=== PATIENT | male | born 1935 | race African-American/Black ===

== ENCOUNTER 2016-11-23 16:56 | Emergency (ER) | payer OTHER, MEDICAID ==
[~2016-11-23] VITALS: Ht 180.3 cm; Wt 81.0 kg
[~2016-11-23 16:56] MED LIST: ASPI-518 PO; FAMO20TA96 PO; FLUT1DIS3 IH; QVAR80 IH; VIAG50 PO
[2016-11-23] MEDS ORDERED: TRAMADOL 50MG TABLET PO ONE (17:45)
[2016-11-23] MEDS ORDERED: KETOROLAC 15MG/ML VIAL IV ONE (17:45)
[2016-11-23 18:01] LABS: EOSINOPHILS % 1.9 % (0.0-5.0); HEMATOCRIT. 42.5 % (42.0-52.0); HEMOGLOBIN. 14.2 g/dL (14.0-18.0); LYMPHOCYTES % 33.1 % (20.0-50.0); MEAN CORPUSCULAR HGB CONC 33.5 g/dL (31.0-37.0); MEAN CORPUSCULAR VOLUME 89.6 fL (80.0-94.0); MEAN PLATELET VOLUME 8.8 fl (7.4-10.4); MONOCYTES % 11.9 % (2.0-8.0); NEUTROPHILS % 52.1 % (40.0-76.0); PLATELET 197 x1000/uL (130-400); RED BLOOD CELL COUNT 4.74 mill/uL (4.7-6.1); RED CELL DISTRIBUTION WIDTH 14.3 % (11.6-14.6); WHITE BLOOD COUNT 6.4 x1000/uL (4.5-11.0)
[2016-11-23 18:08] LABS: ANION GAP 13; CALCIUM 7.8 mg/dL (8.5-10.1); CARBON DIOXIDE 27 mEq/L (21-32); CHLORIDE 105 mEq/L (98-107); INDEX HEMOLYSI 1 (1-3); INDEX ICTERIC 1 (1-4); INDEX LIPEMIC 1 (1-3); UREA NITROGEN BLOOD 11 mg/dL (7-21)
[2016-11-23 18:12] LABS: TROPONIN I < 0.02 ng/mL (0.00-0.04); eGFR > 60 mL/min (>60)
[2016-11-24 02:10] VITALS: BP 145/78
== END 2016-11-24 04:08 | disposition home or self-care (01) ==
LOC: ER 16:56
DX: M19.012 Primary osteoarthritis, left shoulder (principal); R53.1 Weakness; Z79.82 Long term (current) use of aspirin; Z79.899 Other long term (current) drug therapy
CPT/HCPCS: 36415; 73030; 73060; 80048; 84484; 85025; 96374; 99285; J1885

== ENCOUNTER 2016-12-13 11:21 | Emergency (ER) | payer OTHER, MEDICAID ==
[~2016-12-13] VITALS: Ht 182.9 cm; Wt 100.0 kg
[2016-12-13 12:39] VITALS: BP 164/80
== END 2016-12-13 14:20 | disposition home or self-care (01) ==
LOC: ER 11:56
DX: M13.812 Other specified arthritis, left shoulder (principal); M13.811 Other specified arthritis, right shoulder; R00.1 Bradycardia, unspecified; R56.9 Unspecified convulsions
CPT/HCPCS: 73030; 93005; 99284

== ENCOUNTER 2018-07-18 12:34 | Emergency (ER) | payer OTHER, MEDICAID ==
[~2018-07-18] VITALS: Ht 177.8 cm; Wt 87.0 kg
[~2018-07-18 12:34] MED LIST changes: +DICL100G31 TP; +FAMO-135 PO; -FAMO20TA96 PO; +GABA-531 PO; +LAMO25TA4 PO; +MELO-106 PO; +PHEN100C12 PO; +TAMS-11 PO
[2018-07-18 14:43] LABS: BASOPHILS % 0.6 % (0.0-2.0); EOSINOPHILS % 1.2 % (0.0-5.0); HEMATOCRIT. 39.1 % (42.0-52.0); HEMOGLOBIN. 13.3 g/dL (14.0-18.0); LYMPHOCYTES % 36.6 % (20.0-50.0); MEAN CORPUSCULAR HEMOGLOBIN 31.3 pg (28.0-32.0); MEAN CORPUSCULAR VOLUME 92.2 fL (80.0-94.0); MEAN PLATELET VOLUME 9.5 fl (7.4-10.4); NEUTROPHILS % 52.6 % (40.0-76.0); PLATELET 189 x1000/uL (130-400); RED BLOOD CELL COUNT 4.24 mill/uL (4.7-6.1); RED CELL DISTRIBUTION WIDTH 13.9 % (11.6-14.6)
[2018-07-18 14:49] LABS: CHLORIDE 105 mEq/L (98-107)
[2018-07-18 14:55] LABS: ETHANOL BLOOD < 10 mg/dL
[2018-07-18 15:16] LABS: CLARITY URINE CLEAR (CLEAR); COLOR URINE YELLOW (YELLOW); KETONES URINE NEGATIVE (NEGATIVE); LEUKOCYTE ESTERASE URINE NEGATIVE (NEGATIVE); NITRITE URINE NEGATIVE (NEGATIVE); OCCULT BLOOD URINE NEGATIVE (NEGATIVE); PROTEIN URINE NEGATIVE (NEGATIVE); SPECIFIC GRAVITY URINE 1.011 (1.005-1.030); UROBILINOGEN URINE 0.2 E.U./dL (0.2-1.0)
[2018-07-18 15:31] LABS: *AMPHETAMINES SCREEN URINE NEGATIVE (NEGATIVE); *BARBITURATES SCREEN URINE NEGATIVE (NEGATIVE); *BENZODIAZEPINES SCREEN URINE NEGATIVE (NEGATIVE); *COCAINE SCREEN URINE NEGATIVE (NEGATIVE)
[2018-07-18 15:32] LABS: CANNABINOID URINE SCREEN NEGATIVE (NEGATIVE); METHADONE URINE SCREEN NEGATIVE (NEGATIVE); OPIATES URINE SCREEN NEGATIVE (NEGATIVE); PHENCYCLIDINE URINE SCREEN NEGATIVE (NEGATIVE)
[2018-07-18 20:20] VITALS: BP 138/53
== END 2018-07-19 00:05 | disposition short-term general hospital (02) ==
LOC: ER 13:12 → EDBEDREQ 16:38 → EDBEDREQTM 16:38 → CANBEDREQ 18:19 → ER 07-19 00:05
DX: R53.1 Weakness (principal); I10 Essential (primary) hypertension; G40.909 Epilepsy, unspecified, not intractable, without status epilepticus; M48.061 Spinal stenosis, lumbar region without neurogenic claudication; R26.2 Difficulty in walking, not elsewhere classified; Z86.011 Personal history of benign neoplasm of the brain; Z98.890 Other specified postprocedural states; Z95.0 Presence of cardiac pacemaker; Z79.82 Long term (current) use of aspirin
CPT/HCPCS: 36415; 70450; 71045; 72131; 80053; 80305; 81003; 83880; 84484; 85025; 93005; 99284; G0482

== ENCOUNTER 2018-08-17 11:29 | Inpatient (IN) | payer MEDICARE, MEDICAID ==
[~2018-08-17] VITALS: Ht 185.4 cm; Wt 91.2 kg
[2018-08-17 13:20] LABS: BASOPHILS % 0.7 % (0.0-2.0); EOSINOPHILS % 3.5 % (0.0-5.0); HEMATOCRIT. 41.2 % (42.0-52.0); HEMOGLOBIN. 13.9 g/dL (14.0-18.0); LYMPHOCYTES % 34.6 % (20.0-50.0); MEAN CORPUSCULAR HEMOGLOBIN 30.9 pg (28.0-32.0); MEAN CORPUSCULAR VOLUME 91.4 fL (80.0-94.0); MEAN PLATELET VOLUME 9.1 fl (7.4-10.4); MONOCYTES % 13.8 % (2.0-8.0); NEUTROPHILS % 47.4 % (40.0-76.0); PLATELET 201 x1000/uL (130-400); RED BLOOD CELL COUNT 4.51 mill/uL (4.7-6.1); RED CELL DISTRIBUTION WIDTH 13.8 % (11.6-14.6)
[2018-08-17 13:27] LABS: CHLORIDE 107 mEq/L (98-107)
[2018-08-17 15:09] VITALS: BP 136/81
[2018-08-17 16:00] VITALS: BP 141/69
[2018-08-17] MEDS ORDERED: ONDANSETRON HCL 4MG/2ML INJ IV PRN (16:45)
[2018-08-17] MEDS ORDERED: PHENYTOIN SODIUM EXTENDED 100MG CAPSULE PO SCH (16:45)
[2018-08-17] MEDS ORDERED: ACETAMINOPHEN 325MG TABLET PO PRN (16:45)
[2018-08-17] MEDS ORDERED: IPRATROPIUM/ALBUTEROL 0.5-3(2.5)MG/3ML NEB INH PRN (16:45)
[2018-08-17] MEDS ORDERED: CLONIDINE 0.1MG TABLET PO PRN (16:45)
[2018-08-17] MEDS: PHENYTOIN SODIUM EXTENDED 100MG CAPSULE PO SCH (17:25)
[2018-08-17] MEDS: ASPIRIN 81MG TABLET PO SCH (17:25)
[2018-08-17] MEDS: LAMOTRIGINE 25MG TABLET PO SCH (17:25)
[2018-08-17] MEDS: TAMSULOSIN HCL 0.4MG SR CAPSULE PO SCH (17:26)
[2018-08-17] MEDS: ENOXAPARIN 40MG/0.4ML SYR SUBCUT SCH (17:27)
[2018-08-17 18:33] LABS: *AMPHETAMINES SCREEN URINE NEGATIVE (NEGATIVE); *BARBITURATES SCREEN URINE NEGATIVE (NEGATIVE); *BENZODIAZEPINES SCREEN URINE NEGATIVE (NEGATIVE); *COCAINE SCREEN URINE NEGATIVE (NEGATIVE); METHADONE URINE SCREEN NEGATIVE (NEGATIVE)
[2018-08-17 18:34] LABS: CANNABINOID URINE SCREEN NEGATIVE (NEGATIVE); OPIATES URINE SCREEN NEGATIVE (NEGATIVE); PHENCYCLIDINE URINE SCREEN NEGATIVE (NEGATIVE)
[2018-08-17 20:00] VITALS: BP 116/62
[2018-08-18] VITALS (7 sets, daily range): BP systolic 103–146; BP diastolic 54–93
[2018-08-18 00:39] LABS: CREATINE KINASE MB FRACTION 3.3 ng/mL (0.5-3.6)
[2018-08-18 06:43] LABS: BASOPHILS % 1.1 % (0.0-2.0); EOSINOPHILS % 4.1 % (0.0-5.0); HEMATOCRIT. 44.6 % (42.0-52.0); HEMOGLOBIN. 15.1 g/dL (14.0-18.0); LYMPHOCYTES % 50.7 % (20.0-50.0); MEAN CORPUSCULAR HEMOGLOBIN 30.9 pg (28.0-32.0); MEAN CORPUSCULAR VOLUME 91.5 fL (80.0-94.0); MEAN PLATELET VOLUME 9.2 fl (7.4-10.4); MONOCYTES % 11.1 % (2.0-8.0); PLATELET 197 x1000/uL (130-400); RED BLOOD CELL COUNT 4.87 mill/uL (4.7-6.1)
[2018-08-18 07:00] LABS: CHLORIDE 105 mEq/L (98-107)
[2018-08-18 07:14] LABS: CREATINE KINASE 107 IU/L (39-308)
[2018-08-18 07:15] LABS: CREATINE KINASE MB FRACTION 3.2 ng/mL (0.5-3.6)
[2018-08-18] MEDS: ASPIRIN 81MG TABLET PO SCH (08:27)
[2018-08-18] MEDS: LAMOTRIGINE 25MG TABLET PO SCH (08:28)
[2018-08-18] MEDS: PHENYTOIN SODIUM EXTENDED 100MG CAPSULE PO SCH ×2 (08:28→18:14)
[2018-08-18] MEDS: GABAPENTIN 300MG CAPSULE PO SCH (08:28)
[2018-08-18] MEDS: TAMSULOSIN HCL 0.4MG SR CAPSULE PO SCH ×2 (08:33→18:15)
[2018-08-18] MEDS: ENOXAPARIN 40MG/0.4ML SYR SUBCUT SCH (18:15)
[2018-08-19] VITALS: BP 114/54
[2018-08-19 04:00] VITALS: BP 125/71
[2018-08-19 07:55] LABS: BASOPHILS % 0.6 % (0.0-2.0); HEMATOCRIT. 44.4 % (42.0-52.0); HEMOGLOBIN. 15.2 g/dL (14.0-18.0); LYMPHOCYTES % 46.3 % (20.0-50.0); MEAN CORPUSCULAR HEMOGLOBIN 31.4 pg (28.0-32.0); MEAN CORPUSCULAR VOLUME 91.7 fL (80.0-94.0); MEAN PLATELET VOLUME 9.2 fl (7.4-10.4); MONOCYTES % 10.2 % (2.0-8.0); NEUTROPHILS % 38.9 % (40.0-76.0); PLATELET 210 x1000/uL (130-400); RED BLOOD CELL COUNT 4.84 mill/uL (4.7-6.1); RED CELL DISTRIBUTION WIDTH 13.7 % (11.6-14.6)
[2018-08-19 07:56] LABS: CHLORIDE 105 mEq/L (98-107)
[2018-08-19] MEDS: PHENYTOIN SODIUM EXTENDED 100MG CAPSULE PO SCH (09:48)
[2018-08-19] MEDS: LAMOTRIGINE 25MG TABLET PO SCH (09:48)
[2018-08-19] MEDS: ASPIRIN 81MG TABLET PO SCH (09:48)
[2018-08-19] MEDS: GABAPENTIN 300MG CAPSULE PO SCH (09:48)
[2018-08-19] MEDS: TAMSULOSIN HCL 0.4MG SR CAPSULE PO SCH (09:48)
[2018-08-19 12:08] VITALS: BP 124/69
[2018-08-19 14:11] VITALS: BP 122/68
== END 2018-08-19 16:00 | disposition home or self-care (01) | DRG 206 ==
LOC: ER 11:29 → 5WST 12:44 → ENRESERV 12:52
PROVIDERS: ADMIT Internal Medicine; ATTEND Internal Medicine
PROC: 4B02XSZ Measurement of Cardiac Pacemaker, External Approach (ICD-10-PCS; principal; 2018-08-18)
DX: M94.0 Chondrocostal junction syndrome [Tietze] (principal); I50.20 Unspecified systolic (congestive) heart failure; R07.89 Other chest pain; J44.9 Chronic obstructive pulmonary disease, unspecified; G40.909 Epilepsy, unspecified, not intractable, without status epilepticus; N40.0 Benign prostatic hyperplasia without lower urinary tract symptoms; Z85.841 Personal history of malignant neoplasm of brain; Z87.891 Personal history of nicotine dependence; Z95.0 Presence of cardiac pacemaker; Z85.9 Personal history of malignant neoplasm, unspecified; Z86.73 Personal history of transient ischemic attack (TIA), and cerebral infarction without residual deficits; I11.0 Hypertensive heart disease with heart failure; I49.5 Sick sinus syndrome
CPT/HCPCS: 36415; 70360; 71046; 80048; 80305; 82550; 82553; 82962; 83880; 84484; 93005; 93306; 99285; J1650

== ENCOUNTER 2018-08-20 10:52 | Emergency (ER) | payer MEDICARE, MEDICAID ==
[~2018-08-20] VITALS: Ht 185.4 cm; Wt 90.0 kg
[2018-08-20] MEDS ORDERED: ASPIRIN 81MG TABLET PO ONE (11:30)
[2018-08-20 11:58] LABS: BASOPHILS % 0.7 % (0.0-2.0); EOSINOPHILS % 4.5 % (0.0-5.0); HEMATOCRIT. 43.8 % (42.0-52.0); LYMPHOCYTES % 31.5 % (20.0-50.0); MEAN CORPUSCULAR HEMOGLOBIN 31.2 pg (28.0-32.0); MEAN CORPUSCULAR VOLUME 91.1 fL (80.0-94.0); MEAN PLATELET VOLUME 9.4 fl (7.4-10.4); MONOCYTES % 9.5 % (2.0-8.0); NEUTROPHILS % 53.8 % (40.0-76.0); PLATELET 213 x1000/uL (130-400); RED CELL DISTRIBUTION WIDTH 14.1 % (11.6-14.6)
[2018-08-20 12:01] LABS: CHLORIDE 107 mEq/L (98-107)
[2018-08-20 12:11] LABS: D-DIMER 0.46 mg/L FEU (<0.50); INR 1.1; PROTHROMBIN TIME 10.8 sec (9.1-11.1)
[2018-08-20 16:32] VITALS: BP 128/70
== END 2018-08-20 16:40 | disposition short-term general hospital (02) ==
LOC: ER 10:52 → CANBEDREQ 20:45
DX: R00.2 Palpitations (principal); R07.89 Other chest pain; I10 Essential (primary) hypertension; I45.10 Unspecified right bundle-branch block; Z98.890 Other specified postprocedural states; Z86.011 Personal history of benign neoplasm of the brain; Z85.9 Personal history of malignant neoplasm, unspecified; Z95.0 Presence of cardiac pacemaker; Z79.82 Long term (current) use of aspirin
CPT/HCPCS: 36415; 71045; 80185; 83880; 84484; 85379; 93005; 99285

== ENCOUNTER 2019-05-17 17:04 | Emergency (ER) | payer MEDICAID, MEDICARE ==
[~2019-05-17] VITALS: Ht 185.4 cm; Wt 86.0 kg
[~2019-05-17 17:04] MED LIST changes: -LAMO25TA4 PO; +LAMO25TA9 PO
[2019-05-17 18:49] LABS: CLARITY URINE CLEAR (CLEAR); COLOR URINE YELLOW (YELLOW); KETONES URINE NEGATIVE (NEGATIVE); LEUKOCYTE ESTERASE URINE NEGATIVE (NEGATIVE); NITRITE URINE NEGATIVE (NEGATIVE); OCCULT BLOOD URINE NEGATIVE (NEGATIVE); PROTEIN URINE NEGATIVE (NEGATIVE); SPECIFIC GRAVITY URINE 1.026 (1.005-1.030)
[2019-05-17] MEDS ORDERED: SODIUM CHLORIDE 0.9% 500 ML IV ONE (19:00)
[2019-05-17 19:16] LABS: *BARBITURATES SCREEN URINE NEGATIVE (NEGATIVE)
[2019-05-17 19:17] LABS: *AMPHETAMINES SCREEN URINE NEGATIVE (NEGATIVE); *BENZODIAZEPINES SCREEN URINE NEGATIVE (NEGATIVE); *COCAINE SCREEN URINE NEGATIVE (NEGATIVE); METHADONE URINE SCREEN NEGATIVE (NEGATIVE)
[2019-05-17 19:18] LABS: CANNABINOID URINE SCREEN NEGATIVE (NEGATIVE); OPIATES URINE SCREEN NEGATIVE (NEGATIVE); PHENCYCLIDINE URINE SCREEN NEGATIVE (NEGATIVE)
[2019-05-17 20:27] LABS: BASOPHILS % 0.6 % (0.0-2.0); EOSINOPHILS % 1.2 % (0.0-5.0); HEMATOCRIT. 38.3 % (42.0-52.0); HEMOGLOBIN. 13.1 g/dL (14.0-18.0); LYMPHOCYTES % 33.6 % (20.0-50.0); MEAN CORPUSCULAR HEMOGLOBIN 30.5 pg (28.0-32.0); MEAN CORPUSCULAR VOLUME 89.2 fL (80.0-94.0); MEAN PLATELET VOLUME 9.2 fl (7.4-10.4); MONOCYTES % 10.4 % (2.0-8.0); NEUTROPHILS % 54.2 % (40.0-76.0); PLATELET 202 x1000/uL (130-400); RED BLOOD CELL COUNT 4.29 mill/uL (4.7-6.1); RED CELL DISTRIBUTION WIDTH 14.5 % (11.6-14.6)
[2019-05-17 20:32] LABS: CHLORIDE 108 mEq/L (98-107)
[2019-05-17 20:35] VITALS: BP 131/76
[2019-05-17 20:36] LABS: ETHANOL BLOOD < 10 mg/dL
== END 2019-05-17 22:53 | disposition home or self-care (01) ==
LOC: ER 17:04
DX: R55 Syncope and collapse (principal); I11.9 Hypertensive heart disease without heart failure; Z95.0 Presence of cardiac pacemaker; Z98.890 Other specified postprocedural states; Z79.899 Other long term (current) drug therapy
CPT/HCPCS: 36415; 70450; 71045; 80053; 80305; 80320; 81003; 83880; 84484; 85025; 93005; 96360; 96361; 99284; J7040; G0480

== ENCOUNTER 2019-05-21 18:16 | Inpatient (IN) | payer MEDICARE ==
[~2019-05-21] VITALS: Ht 185.4 cm; Wt 89.4 kg
[2019-05-21 19:28] LABS: BASOPHILS % 0.1 % (0.0-2.0); HEMATOCRIT. 45.5 % (42.0-52.0); HEMOGLOBIN. 15.5 g/dL (14.0-18.0); LYMPHOCYTES % 7.1 % (20.0-50.0); MEAN CORPUSCULAR HEMOGLOBIN 30.3 pg (28.0-32.0); MEAN CORPUSCULAR VOLUME 88.7 fL (80.0-94.0); MEAN PLATELET VOLUME 9.2 fl (7.4-10.4); NEUTROPHILS % 87.8 % (40.0-76.0); PLATELET 239 x1000/uL (130-400); RED BLOOD CELL COUNT 5.13 mill/uL (4.7-6.1); RED CELL DISTRIBUTION WIDTH 14.4 % (11.6-14.6)
[2019-05-21 19:30] LABS: CHLORIDE 100 mEq/L (98-107)
[2019-05-21] MEDS ORDERED: PHENYTOIN SODIUM 1,000 MG in SODIUM CHLORIDE 0.9% 100 ML IV ONE (20:00)
[2019-05-21] MEDS ORDERED: FUROSEMIDE 20MG/2ML VIAL IVP ONE (20:00)
[2019-05-21 20:34] LABS: CLARITY URINE CLEAR (CLEAR); COLOR URINE YELLOW (YELLOW); KETONES URINE 1+ (NEGATIVE); LEUKOCYTE ESTERASE URINE NEGATIVE (NEGATIVE); NITRITE URINE NEGATIVE (NEGATIVE); OCCULT BLOOD URINE 2+ (NEGATIVE); PROTEIN URINE 1+ (NEGATIVE); SPECIFIC GRAVITY URINE 1.016 (1.005-1.030)
[2019-05-21 23:56] VITALS: BP 122/62
[2019-05-22] VITALS: BP 122/62
[2019-05-22] MEDS ORDERED: LORAZEPAM 2MG/ML CPJ IV PRN (01:45)
[2019-05-22] MEDS ORDERED: ONDANSETRON HCL 4MG/2ML INJ IV PRN (01:45)
[2019-05-22] MEDS ORDERED: ACETAMINOPHEN 325MG TABLET PO PRN (01:45)
[2019-05-22 04:25] VITALS: BP 103/53
[2019-05-22] MEDS ORDERED: SODIUM CHLORIDE 0.9% 1,000 ML IV SCH (06:00)
[2019-05-22 07:00] LABS: BASOPHILS % 0.3 % (0.0-2.0); EOSINOPHILS % 0.2 % (0.0-5.0); HEMATOCRIT. 43.6 % (42.0-52.0); HEMOGLOBIN. 15.1 g/dL (14.0-18.0); MEAN CORPUSCULAR HEMOGLOBIN 30.8 pg (28.0-32.0); MEAN CORPUSCULAR VOLUME 88.9 fL (80.0-94.0); MEAN PLATELET VOLUME 9.6 fl (7.4-10.4); MONOCYTES % 9.1 % (2.0-8.0); NEUTROPHILS % 78.4 % (40.0-76.0); PLATELET 211 x1000/uL (130-400); RED CELL DISTRIBUTION WIDTH 14.3 % (11.6-14.6)
[2019-05-22 07:06] LABS: CHLORIDE 104 mEq/L (98-107)
[2019-05-22 08:00] VITALS: BP 107/54
[2019-05-22] MEDS: LEVETIRACETAM 500 MG in SODIUM CHLORIDE 0.9% 100 ML IV SCH ×2 (08:49→22:10)
[2019-05-22] MEDS: ENOXAPARIN 40MG/0.4ML SYR SUBCUT SCH (08:49)
[2019-05-22] MEDS ORDERED: LEVETIRACETAM 500 MG in SODIUM CHLORIDE 0.9% 100 ML IV SCH (09:00)
[2019-05-22 12:00] VITALS: BP 117/66
[2019-05-22 14:40] LABS: *AMPHETAMINES SCREEN URINE NEGATIVE (NEGATIVE); *BARBITURATES SCREEN URINE NEGATIVE (NEGATIVE); *BENZODIAZEPINES SCREEN URINE NEGATIVE (NEGATIVE); *COCAINE SCREEN URINE NEGATIVE (NEGATIVE); METHADONE URINE SCREEN NEGATIVE (NEGATIVE)
[2019-05-22 14:41] LABS: CANNABINOID URINE SCREEN NEGATIVE (NEGATIVE); OPIATES URINE SCREEN NEGATIVE (NEGATIVE); PHENCYCLIDINE URINE SCREEN NEGATIVE (NEGATIVE)
[2019-05-22 16:00] VITALS: BP 122/71
[2019-05-22] MEDS ORDERED: FUROSEMIDE 40MG/4ML VIAL IVP NR (16:00)
[2019-05-22] MEDS: ASPIRIN 81MG TABLET PO SCH (17:55)
[2019-05-22 20:00] VITALS: BP 114/68
[2019-05-22] MEDS: PHENYTOIN SODIUM EXTENDED 100MG CAPSULE PO SCH (22:10)
[2019-05-23] VITALS: BP 105/58
[2019-05-23 04:00] VITALS: BP 139/79
[2019-05-23 07:53] LABS: BASOPHILS % 0.4 % (0.0-2.0); EOSINOPHILS % 1.8 % (0.0-5.0); HEMATOCRIT. 44.3 % (42.0-52.0); LYMPHOCYTES % 24.5 % (20.0-50.0); MEAN CORPUSCULAR HEMOGLOBIN 30.5 pg (28.0-32.0); MEAN CORPUSCULAR VOLUME 90.3 fL (80.0-94.0); MEAN PLATELET VOLUME 9.9 fl (7.4-10.4); MONOCYTES % 10.3 % (2.0-8.0); PLATELET 194 x1000/uL (130-400); RED BLOOD CELL COUNT 4.91 mill/uL (4.7-6.1); RED CELL DISTRIBUTION WIDTH 14.6 % (11.6-14.6)
[2019-05-23 08:00] VITALS: BP 113/66
[2019-05-23 08:04] LABS: CHLORIDE 107 mEq/L (98-107)
[2019-05-23] MEDS: ASPIRIN 81MG TABLET PO SCH (08:49)
[2019-05-23] MEDS: LEVETIRACETAM 500 MG in SODIUM CHLORIDE 0.9% 100 ML IV SCH ×2 (08:49→20:50)
[2019-05-23] MEDS: ENOXAPARIN 40MG/0.4ML SYR SUBCUT SCH (08:50)
[2019-05-23 12:10] VITALS: BP 132/63
[2019-05-23 16:00] VITALS: BP 115/69
[2019-05-23 20:00] VITALS: BP 132/67
[2019-05-23] MEDS: PHENYTOIN SODIUM EXTENDED 100MG CAPSULE PO SCH (20:50)
[2019-05-24] VITALS: BP 102/64
[2019-05-24 04:00] VITALS: BP 109/64
[2019-05-24 08:00] VITALS: BP 120/64
[2019-05-24] MEDS: LEVETIRACETAM 500 MG in SODIUM CHLORIDE 0.9% 100 ML IV SCH ×2 (08:34→20:25)
[2019-05-24] MEDS: ASPIRIN 81MG TABLET PO SCH (08:34)
[2019-05-24] MEDS: ENOXAPARIN 40MG/0.4ML SYR SUBCUT SCH (08:35)
[2019-05-24 12:00] VITALS: BP 115/54
[2019-05-24 16:00] VITALS: BP 120/58
[2019-05-24 20:00] VITALS: BP 111/59
[2019-05-24] MEDS: PHENYTOIN SODIUM EXTENDED 100MG CAPSULE PO SCH (20:25)
[2019-05-25] VITALS: BP 125/64
[2019-05-25 04:00] VITALS: BP 120/63
[2019-05-25 08:00] VITALS: BP 99/56
[2019-05-25] MEDS: LEVETIRACETAM 500 MG in SODIUM CHLORIDE 0.9% 100 ML IV SCH ×2 (09:11→21:46)
[2019-05-25] MEDS: ASPIRIN 81MG TABLET PO SCH (09:11)
[2019-05-25] MEDS: ENOXAPARIN 40MG/0.4ML SYR SUBCUT SCH (11:32)
[2019-05-25 12:00] VITALS: BP 113/68
[2019-05-25 16:00] VITALS: BP 115/66
[2019-05-25 20:00] VITALS: BP 125/64
[2019-05-25] MEDS: PHENYTOIN SODIUM EXTENDED 100MG CAPSULE PO SCH (21:46)
[2019-05-25] MEDS: ATORVASTATIN CALCIUM 10MG TABLET PO SCH (21:47)
[2019-05-25] MEDS: CARVEDILOL 3.125 MG TABLET PO SCH (21:47)
[2019-05-26] VITALS: BP 129/69
[2019-05-26 04:00] VITALS: BP 142/78
[2019-05-26 08:00] VITALS: BP 142/73
[2019-05-26] MEDS: ASPIRIN 81MG TABLET PO SCH (09:46)
[2019-05-26] MEDS: CARVEDILOL 3.125 MG TABLET PO SCH ×2 (09:46→21:05)
[2019-05-26 12:00] VITALS: BP 109/63
[2019-05-26] MEDS: LEVETIRACETAM 500 MG in SODIUM CHLORIDE 0.9% 100 ML IV SCH ×2 (12:14→21:33)
[2019-05-26] MEDS: ENOXAPARIN 40MG/0.4ML SYR SUBCUT SCH (12:14)
[2019-05-26 16:00] VITALS: BP 100/67
[2019-05-26 20:00] VITALS: BP 114/60
[2019-05-26] MEDS: ATORVASTATIN CALCIUM 10MG TABLET PO SCH (21:05)
[2019-05-26] MEDS: PHENYTOIN SODIUM EXTENDED 100MG CAPSULE PO SCH (21:06)
[2019-05-27] VITALS (7 sets, daily range): BP systolic 98–129; BP diastolic 52–78
[2019-05-27] MEDS: CARVEDILOL 3.125 MG TABLET PO SCH (09:00)
[2019-05-27] MEDS: LEVETIRACETAM 500 MG in SODIUM CHLORIDE 0.9% 100 ML IV SCH (09:45)
[2019-05-27] MEDS: ASPIRIN 81MG TABLET PO SCH (09:45)
[2019-05-27] MEDS: ENOXAPARIN 40MG/0.4ML SYR SUBCUT SCH (10:17)
== END 2019-05-27 22:03 | DRG 101 ==
LOC: ER 18:16 → EDBEDREQ 20:03 → EDBEDREQTM 20:03 → EDBEDREQ 21:04 → EDBEDREQTM 21:04 → ENRESERV 22:23 → 5WST 23:25
PROVIDERS: ADMIT Internal Medicine; ATTEND Internal Medicine
DX: G40.909 Epilepsy, unspecified, not intractable, without status epilepticus (principal); I50.22 Chronic systolic (congestive) heart failure; I11.0 Hypertensive heart disease with heart failure; J44.9 Chronic obstructive pulmonary disease, unspecified; R55 Syncope and collapse; Z95.0 Presence of cardiac pacemaker; Z85.841 Personal history of malignant neoplasm of brain; Z79.899 Other long term (current) drug therapy; Z79.82 Long term (current) use of aspirin; Z91.14 Patient's other noncompliance with medication regimen
CPT/HCPCS: 36415; 71045; 71250; 74176; 80048; 80185; 80305; 80320; 81003; 82962; 83880; 84484; 93005; 93306; 93880; 96365; 97162; 97166; 99291; J1165; J1650; J1940; J1953; J7030; J7050; G0480